=== PATIENT | female | born 1980 | race Caucasian/White ===

== ENCOUNTER 2024-09-22 08:07 | Emergency (ER) | payer OTHER, SELFPAY ==
--- OUTSIDE RECORDS SUMMARY | 2024-09-22 08:11 | XMS_ITS | Clinical Summary ---
Author Organization [facility] Address [address] [place] [address] Care Team Providers Care House Rn Name Role Phone Minor Joshi Primary Care Provider [phone] Source Comments [facility],non-owned Affiliates and Associated Physician Practices is amultiple site organization consisting of ambulatory clinics and hospital sitesin [place], [place], [place] and [place]. This disclosure is being madepursuant to the Care Everywhere program and may not contain all information available regarding this patient. Last updated 17.[facility] Allergies No known active allergies Medications * Be aware that medications may not be up to date on this document. Alwaysverify current medications with the patient. acetaminophen (TYLENOL) 325 MG tablet Take 2 tablets by mouth every 6 hours Maximum allowable Acetaminophen amount = 4 Grams (4000 mg) / 24 hours. 0 Active ibuprofen (MOTRIN) 600 MG tablet Take 1 tablet by mouth every 6 hours 0 Active Active Problems No known active problems Family History Medical History Relation Name Comments Cancer - Ovarian Maternal Grandmother Cancer - Breast Maternal Great-Grandmother Relation Name Status Comments Maternal Grandmother Maternal Great-Grandmother Social History Tobacco Use Types Packs/Day Years Used Date Smoking Tobacco: Never Smokeless Tobacco: Never Alcohol Use Standard Drinks/Week Comments Yes 0 (1 standard drink = 0.6 oz pur e alcohol) Comments No Sex and Gender Information Value Date Recorded Sex Assigned at Not on file Legal Sex Female 10:30 AM CDT Gender Identity Not on file Sexual Orientation Not on file Last Filed Vital Signs Vital Sign Reading Time Taken Comments Blood Pressure 120/79 02/15/2020 10:01 AM STRADDLE BUG OPERATOR Pulse 107 02/15/2020 10:01 AM STRADDLE BUG OPERATOR Temperature 36 C (96.8 F) 02/15/2020 10:01 AM STRADDLE BUG OPERATOR Respiratory Rate 18 02/15/2020 10:01 AM STRADDLE BUG OPERATOR Oxygen Saturation 100% 02/15/2020 10:01 AM STRADDLE BUG OPERATOR Inhaled Oxygen Concentration - - Weight 85.4 kg (188 lb 3.2 oz) 02/15/2020 10:01 AM STRADDLE BUG OPERATOR Height 175.3 cm (5' 9) 02/15/2020 10:01 AM STRADDLE BUG OPERATOR Body Mass Index 27.79 02/15/2020 10:01 AM STRADDLE BUG OPERATOR Plan of Treatment Health Maintenance Due Date Last Done Comments LIPID TESTING 1980 HIV SCREENING 09/12/1995 HEPATITIS C SCREENING 09/07/1998 DTAP/TDAP/TD VACCINES (1 - Tdap) 09/12/1999 HEPATITIS B VACCINE (1 of 3 - 19+ 3-dose series) 09/12/1999 MAMMOGRAM 11/29/2021 11/30/2019 COVID-19 VACCINE (1 - 2023-2 5 season) 2023 DEPRESSION SCREENING 03/15/2024 INFLUENZA VACCINE (#1) 2024 ZOSTER VACCINE (1 of 2) 2030 HIB VACCINE Aged Out No longer eligi ble based on patient's age to complete this topic HPV VACCINE Aged Out No longer eligi ble based on patient's age to complete this topic MENINGOCOCCAL (Group B) VACC INE SHARED DECISION-MAKING Aged Out No longer eligibl e based on patient's age to complete this topic MENINGOCOCCAL GROUPS A/C/Y/W VACCINE Aged Out No longer eligible b ased on patient's age to complete this topic PNEUMOCOCCAL VACCINE Aged Out No long er eligible based on patient's age to complete this topic Insurance [facility] Care Teams House Rn Relationship Specialty [place] [address] [place] [address] PCP - General Physician Motor Block Mechanic 12/28/19
--- NOTE | 2024-09-22 08:13 | ED.URI ---
HPI - URI/Sore Throat General Chief Complaint: Upper Respiratory Infection Stated Complaint: Sore throat / chest tightness Time Seen by Provider: 09/22/24 08:13 Source: patient and RN notes reviewed Mode of arrival: ambulatory Limitations: no limitations History of Present Illness HPI Narrative: 44-year-old female presents with concern for 3 day history of cough, fever, sore throat, nausea, body aches. She reports symptoms started on Wednesday. She is taking Claritin with mild relief. She took multi symptom cold medicine yesterday with no relief. She denies any direct sick contacts. MD elicited complaint: cough and sore throat Related Data Allergies Allergy/AdvReac Type Severity Reaction Status Date / Time No Known Allergies Allergy Unknown Verified 09/22/24 08:12 Review of Systems Review of Systems: CONSTITUTIONAL: Reports malaise, fever. EYES: Denies visual changes, redness, or discharge. ENT: Reports rhinorrhea, congestion, and sore throat. CARDIOVASCULAR: Denies chest pain, palpitations, or edema. RESPIRATORY: Reports cough. Denies dyspnea. GASTROINTESTINAL: Denies abdominal pain, vomiting, diarrhea. Reports nausea SKIN: Denies rash or itching. MUSCULOSKELETAL: Reports myalgia. NEUROLOGIC: Reports headache. All systems reviewed & are unremarkable except as noted in HPI and below PMFSH Comments At time of signature, agree with nursing past medical, surgical, social and family history. There is no relevant family history pertinent to the presenting complaint Exam Narrative: GENERAL: Nontoxic-appearing, well-nourished, and in no acute distress. HEAD: Normocephalic EYES: PERRLA, conjunctivae clear ENT: Nares clear, turbinates edematous and erythematous, clear discharge. Mucous membranes moist. TM pearly stanley with sharp light reflex bilaterally; no tragal tenderness. Oropharynx not erythematous without lesions. Tonsils not enlarged and without exudate, no drooling, no hoarseness, no trismus, uvula midline. NECK: Supple. No lymphadenopathy CHEST: Clear to auscultation, breath sounds equal. No wheezing, rhonchi, rales, or stridor. No respiratory distress, speaks in full sentences. HEART: Regular rate and rhythm. No murmur heard. SKIN: Warm, dry, no rash. NEURO: Alert and oriented x3. PSYCH: Normal mood and affect Course Course Emergency Course: Patient is aware of diagnosis, understands and agrees to treatment plan. Anticipatory guidance given. Patient agrees to follow-up as directed and is aware of reasons to seek care at the emergency department. Portions of this record may have been created with voice recognition software Level of Care: Express Care Visit Vital Signs Vital signs: Reviewed. MDM - URI/Sore Throat MDM Narrative Medical decision making narrative: Differential diagnosis considered: Andrews virus, strep pharyngitis, allergic rhinitis, upper respiratory tract infection, sinusitis, rhinosinusitis, nasopharyngitis. viral pharyngitis, otitis media, otitis externa, pneumonia, bronchitis, viral cough syndrome, viral syndrome, and influenza. Exam findings show no acute concerns or changes; patient is non-toxic appearing and is in no distress. Patient is appropriate for outpatient treatment and follow-up. Lab Data Attestation: I reviewed the patient's lab results. Critical Care Time Critical Care Time Critical Care Time: No Discharge Plan Discharge Clinical Impression: Upper respiratory infection Patient Disposition: Home Condition: Stable Instructions: Upper Respiratory Infection (ED) Additional Instructions: Your COVID and flu tests are negative Your rapid strep swab was negative today at [facility]. A throat culture will be sent to the laboratory for further testing. If the test is positive, you will receive a phone call within 48 hours and an appropriate antibiotic will be initiated at that time. Your symptoms are likely due to a viral illness, which is not treated with antibiotics. Viral symptoms can be present for up to a few weeks. -Alternate Tylenol and Motrin per package directions for fever or pain. -Antihistamine medication such as Benadryl at night and Zyrtec during the day can help improve symptoms. -Eat and drink things that are easy to swallow, like tea or soup, or popsicles to suck on. -Oral rinses such as: Salt water gargles and/or may use topical anesthetic (eg. Chloraseptic spray) or lozenges to relieve dryness or throat pain). -Frequent hand washing or hand physician general internal medicine is one of the best ways to prevent spread of infection. -Follow up with primary care provider in 2-3 days if condition is not improving; or seek ER visit if you have trouble breathing, cannot drink enough fluids, have muffled voice, difficulty opening your mouth, or severe swelling. Patient Language: Croatian Prescriptions: New methylprednisolone [Medrol (Julio)] 4 mg tablets,dose pack See Rx Instructions .ROUTE .COMPLEX Qty: 21 0RF Rx Instructions: orally per package directions Follow-up/Referrals: PHYSICIAN,CRUSHING MILL OPERATOR [Primary Care Provider] - Time of Disposition: 08:47
--- OUTSIDE RECORDS SUMMARY | 2024-09-22 08:14 | XMS_ITS | Encounter Summary ---
Author Organization [facility] Address [address] [place] [address] Care Team Providers Care X Ray Equipment Tester Name Role Phone [facility] Primary Care Provider + Monserrat Isaac MD Primary Care Provider [phone] Encounter Details Date Type Department Care Team (Late st Contact Info) Description 02/23/2023 MyCQosmost Message Enc [facility] Family & Internal Medicine [address] [address] [address] Dave[address] FNP[address] [place] [address] Counselor/therapy Social History Tobacco Use Types Packs/Day Years Used Date Smoking Tobacco: Former Cigarettes 0 03/31/2010 - 03/31/2015 Smokeless Tobacco: Never Comments:1 pack every 3 days Alcohol Use Standard Drinks/Week Comments Yes 0 (1 standard drink = 0.6 oz pure alcohol) occasional, 1-2 mikes hard lemonade per week PHQ-2 Answer Date Recorded Patient Health Questionnaire-2 Score 0 01/18/2023 Comments No Sex and Gender Information Value Date Recorded Sex Assigned at Not on file Legal Sex Female 5:44 PM CDT Gender Identity Not on file Sexual Orientation Not on file documented as of this encounter Progress Notes * INGRID Hernandez - 02/24/2023 10:56 AM CST Noted. Thank you. D HORTICULTURAL SPECIALTY GROWER * Bettina Amaya RN - 02/24/2023 10:39 AM CST FYI D HORTICULTURAL SPECIALTY GROWER documented in this encounter Plan of Treatment Not on file documented as of this encounter Visit Diagnoses Not on filedocumented in this encounter Additional Health Concerns Infection Onset Date Last Indicated Resolved Time Respiratory Rule Out 06/14/2024 06/14/2024 025 7:59 AM CDT Assessment Noted Time PHQ-9 Depression Total Score: 022 1:33 PM CDT documented as of this encounter Care Teams X Ray Equipment Tester Relationship Specialty Start Date End Date Clari Davey FNP-BC [address] [address], [address] [place] [address] PCP - General Nurse Practitioner Family 10/15/2209/12 [place] [address] [address] [place] [address] PCP - General INTERNAL MEDICINE 09/22/24 documented as of this encounter
--- OUTSIDE RECORDS SUMMARY | 2024-09-22 08:14 | XMS_ITS | Encounter Summary ---
Author Organization [facility] Address [address] [place] [address] Care Team Providers Care Mail Processing Equipment Mechanic Name Role Phone Clari Davey [facility] Primary Care Provider + Monserrat Isaac MD Primary Care Provider [phone] Encounter Details Date Type Department Care Team (Late st Contact Info) Description 02/23/2023 MyCCrowd Playt Message Enc [facility] Medical [facility] Family & Internal Medicine [address] [address] Clari Davey, [address], [address] [place] [address] Energy Social History Tobacco Use Types Packs/Day Years [...] as of this encounter Progress Notes * Bettina Amaya RN - 02/24/2023 10:22 AM CST Please advise. WHINA KOHANGA REO documented in this encounter Plan of Treatment Not on file documented as of this encounter Visit Diagnoses Not on filedocumented in this encounter Additional Health Concerns Infection Onset Date Last Indicated Resolved Time Respiratory Rule Out 06/14/2024 06/14/2024 025 7:59 AM CDT Assessment Noted Time PHQ-9 Depression Total Score: 12 022 1:33 PM CDT documented as of this encounter Care Teams Mail Processing Equipment Mechanic Relationship Specialty Start Date End Date Clari Davey, SAFETY CLOTHING AND EQUIPMENT DEVELOPER- [address] [address], [address] [place] [address] PCP - General Nurse Practitioner Family 10/15/2209/12 [place] [address] [address] [place] [address] PCP - General INTERNAL MEDICINE 09/22/24 documented as of this encounter
--- OUTSIDE RECORDS SUMMARY | 2024-09-22 08:14 | XMS_ITS | Clinical Summary ---
Author Organization [facility] Address [address] [place] [address] Care Team Providers Care Account Service Associate Name Role Phone Monserrat Isaac MD Primary Care Provider [phone] Allergies No known active allergies Medications diclofenac EC (VOLTAREN) 75 MG tabletIndicatio ns:Right foot pain Take 1 tablet (75 mg total) by mouth 2 (two) times daily. 60 tablet 1 4 Active Additional Information Patient not taking.Reported on 06/14/2024 albuterol sulfate HFA 108 (90 Base) MCG/ACT inhalerIndicati ons:Environment al allergies Inhale 2 puffs into the lungs every 6 (six) hours as needed. 18 g Active Active Problems Problem Noted Date Diagnosed Date Sinusitis, acute 06/21/2017 Fatigue 06/21/2017 Vitamin B 12 deficiency 06/23/2016 Bipolar disorder ([facility]) 06/11/2016 Resolved Problems Problem Noted Date Diagnosed Date Resolved Date Encounter for preventive health examination 06/11/2016 12/02/2020 Encounters Date Type Department Care Team Description 07/14/2024 Results Follow-Up [facility] Family & Internal Medicine [facility] [address] [place] [address] John Bower, SENIOR SYSTEMS DEVELOPER-BC MG SCREENING W MADELINE BEN DIGI 07/13/2024 3:00 PM CDT - 07/13/2024 11:59 PM CDT Hospital Encounter [facility] [address] [place] [address] John Bower, [facility] Discharge Disposition: Home or Self Care (Routine Discharge) 07/13/2024 Travel from Last 3 Months Immunizations Immunization Administration Dates Next Due COVID-19 Vaccine (Generic) 02/14/2021(Deferred: Patient Refused) Influenza (Generic) 02/14/2021(Deferred: Patient Refused) Family History Medical History Relation Comments No Known Problems Brother Cancer Father lung No Known Problems Maternal Grandfather No Known Problems Maternal Grandmother TIA mini strokes Mother No Known Problems Paternal Grandfather No Known Problems Paternal Grandmother No Known Problems Sister Breast Cancer Neg Hx Relation Status Comments Brother Alive Father Maternal Grandfather Alive Maternal Grandmother Mother Alive Paternal Grandfather Paternal Grandmother Alive Sister Alive Social History Tobacco Use Types Packs/Day Years Used Date Smoking Tobacco: Former Cigarettes 0 03/31/2010 - 03/31/2015 Smokeless Tobacco: Never Tobacco Cessation:Counseling Given: Yes Comments:1 pack every 3 days Alcohol Use Standard Drinks/Week Comments Yes 0 (1 standard drink = 0.6 oz pure alcohol) occasional, 1-2 mikes hard lemonade per week PHQ-2 Answer Date Recorded Patient Health Questionnaire-2 Score 0 06/16/2023 Comments No Sex and Gender Information Value Date Recorded Sex Assigned at Not on file Legal Sex Female 5:44 PM CDT Gender Identity Not on file Sexual Orientation Not on file Last Filed Vital Signs Vital Sign Reading Time Taken Comments Blood Pressure 131/89 06/14/2024 7:35 AM CDT Pulse 97 06/14/2024 7:35 AM CDT Temperature 36.9 C (98.5 F) 06/14/2024 7:35 AM CDT Respiratory Rate 21 06/14/2024 7:35 AM CDT Oxygen Saturation 98% 06/14/2024 7:35 AM CDT Inhaled Oxygen Concentration - - Weight 92.1 kg (203 lb) 06/14/2024 7:35 AM CDT Height 175.3 cm (5' 9) 06/14/2024 7:35 AM CDT Body Mass Index 29.98 06/14/2024 7:35 AM CDT Plan of Treatment Health Maintenance Due Date Last Done Comments Hepatitis C 1998 DTaP, Tdap and Td Vaccines (1 - Tdap) 09/12/1999 Hepatitis B Vaccines (1 of 3 - 19+ 3-dose series) 09/12/1999 Annual Physical 11/12/2023 11/11/2022 COVID-19 Vaccine (1 - 2023- season) 2023 PHQ-2 (Physician Hawthorne) 03/15/2024 06/16/2023 Cervical Cancer Screening Pap Smear (Age 30 to 64) Every 3 Years 11/11/2025 11/11/2022, 04/09/2011 Mammogram Screening 07/13/2026 07/13/2024, 03/03/2023, 02/28/2021, Additional history exists Cervical Cancer Screening Pap with HPV Testing (Age 30 to 64) Every 5 Years 11/12/2027 11/11/2022, 11/11/2022 Cervical Cancer Screening with HPV 11/12/2027 HPV Vaccines Aged Out No longer eligi ble based on patient's age to complete this topic Meningococcal B Vaccine Aged Out No l onger eligible based on patient's age to complete this topic Meningococcal Vaccine Aged Out No lisandro lavonne eligible based on patient's age to complete this topic Pneumococcal Vaccine: Pediatrics (0 to 5 Years) and At-Risk Patients (6 to 49 Years) Aged Out No longer eligible based on patient's age to complete this topic RSV Immunizations Under 20 Months Aged Out No longer eligible based on patient's age to complete this topic Procedures Procedure Name Priority Date/Time Associated Diagnosis Comments MG SCREENING W MADELINE BEN DIGI Routine 07/13/2024 4:00 PM CDT Screening mammogram for breast cancer THINPREP IMAGING PAP AND HPV MRNA E6/E7 Routine 11/11/2022 7:25 AM CDT OUTSIDE CYTOPATH CERV/VAG INTERPRET (PAP) 11/11/2022 from Last 3 Months or Most Recently Relevant to Health Maintenance Results * MG SCREENING W MADELINE BNE DIGI (07/13/2024 4:00 PM CDT) Anatomical Region Laterality Modality Breast Bilateral Mammography 07/14/2024 8:39 AM CDT Impressions 07/14/2024 8:40 AM CDT =====IMPRESSION:===== No mammographic findings suggestive of malignancy ASSESSMENT: ACR BI-RADS 2 - BENIGN FINDING(S) Recommendation: 1: Routine Screening Bilateral COMMENTS: Ordered By: JOHN BOWER Interpreted By: Isaak Jj MD, 07/14/2024 8:39 AM Narrative 07/14/2024 8:40 AM CDT [facility] [address] [place] [address] EXAMINATION: Digital bilateral screening mammogram with 3-D tomosynthesis EXAM DATE/TIME: 07/13/2024 3:12 PM REASON FOR EXAM: Screening COMPARISON: Priors including November 2019, February 2021, February 2023. TECHNIQUE: Digital screening mammography of both breasts was performed in addition to 3-D Tomosynthesis technique. This study was read with the assistance of a computer-aided detection system. TISSUE DENSITY: There are scattered areas of fibroglandular density. FINDINGS: No suspicious masses, malignant appearing calcifications, skin thickening or other abnormalities are present. No significant change from the prior exam. John Bower SENIOR SYSTEMS DEVELOPER-BC MAMMO Final Re sult * THINPREP IMAGING PAP AND HPV MRNA E6/E7 (11/11/2022 7:25 AM CDT) CLINICAL INFORMATION: 7 or more years since last Pap AtbroxELKO, [place] Clinical Information: NONE GIVEN AtbroxELKO, [place] Date of Last Pap NONE GIVEN QU EST [employer] Enterprises[employer], [place] Previous Biopsy? NONE GIVEN QU EST [employer], [place] SOURCE (QST) Endocervix AtbroxELKO, [place] STATEMENT OF ADEQUACY: AtbroxELKO, [place] Comment: Satisfactory for evaluation. Endocervical/transformation zone component absent. Age and/or menstrual status not provided PAP INTERPRETATION/RES ULTS Cytology Results: Negative for intraepithelial lesion or malignancy. TERRIL, [place] COMMENT: This Pap test has been evaluated with computer assisted technology. TERRIL, [place] JET DYEING MACHINE TENDER [facility], [place] Comment: AMW, CT(ASCP) CT screening location: [place] [address] [address] [place] [address] REVIEW JET DYEING MACHINE TENDER: TERRIL, [place] Comment: MARAVILLA, CT(ASCP) CT Screening location: [facility] [address] [place] [address] COMMENT: TERRIL, [place] Comment: EXPLANATORY NOTE: The Pap is a screening test for cervical cancer. It is not a diagnostic test and is subject to false negative and false positive results. It is most reliable when a satisfactory sample, regularly obtained, is submitted with relevant clinical findings and history, and when the Pap result is evaluated along with historic and current clinical information. HPV MRNA E6/E7 Not Detected Not Detected [facility] Comment: Methodology: Ballast Cleaning Machine Operator-Mediated Amplification This assay detects E6/E7 viral messenger RNA (mRNA) from 14 high-risk HPV types (16,18,31,33,35,39,45,51,52,56,58,59,66,68). Cervical sources are required for HPV testing. If a vaginal source from a patient who has had a total hysterectomy with removal of cervix was submitted, please contact the testing laboratory for alternative testing options. For additional information, please refer to http://education.Sanswire/faq/ZLU442p4 (This link if provided for information/ educational purposes only.) Your request to have a duplicate copy faxed has been acknowledged. Queued to: [id number] 11/11/2022 7:25 AM CDT 11/12/2022 7:06 AM CDT Narrative [facility] - 11/17/2022 7:21 AM CDT FASTING: UNKNOWN Resulting Agency Comment Performing Organization Information: Site ID: [id number] Name: [facility] Address: [address] [address] Director: Jaden Fernandez MD Site ID: [id number] [facility] Address: [address] [address] [address] Director: Jaden Fernandez Teri BERGMAN PATHOLOGY/CYTOLOGY ORDERABLE S Final Result [facility], [place] [address] [place] [address], [facility] [address] [place] [address], [place] * PAP SMEAR WITH HPV (11/11/2022) 11/11/2022 [facility] Scanned SCANNING Final Resu lt from Last 3 Months or Most Recently Relevant to Health Maintenance Care Teams Account Service Associate Relationship Specialty [place] [address] [facility] [address] [place] [address] PCP - General INTERNAL MEDICINE 09/22/24
--- OUTSIDE RECORDS SUMMARY | 2024-09-22 08:14 | XMS_ITS | Encounter Summary ---
Author Organization [facility] Address [address] [place] [address] Care Team Providers Care Dry Clipper Tender Name Role Phone [facility] Primary Care Provider + Monserrat Isaac MD Primary Care Provider [phone] Encounter Details Date Type Department Care Team (Late st Contact Info) Description 06/05/2024 MyCROVOPt Message Enc [facility] Family & Internal Medicine [address] [address] [address] FNP[address] [place] [address] MAMMOGRAM AND PAP Social History Tobacco Use Types Packs/Day Years [...] encounter Progress Notes * INGRID Hernandez - 06/06/2024 2:52 PM CDT Okay to order b/l screening mammogram dx breast cancer screening. Last pap smear was negative on 11/2022. Repeat pap smear for cervical cancer screening is recommended in 3-5 years. If she has concerns or new symptoms, she may want to schedule an appointment for a pelvic exam to make sure all the tissues are healthy even though a pap smear is not due. * Tonie Ruby MA - 06/06/2024 7:57 AM CDT Please advise, per health maintenance recommendations pt is not due for mammogram until February 2025, and her pap until 2027, okay to place mammogram order and schedule pap? documented in this encounter Plan of Treatment Not on file documented as of this encounter Visit Diagnoses Not on filedocumented in this encounter Additional Health Concerns Infection Onset Date Last Indicated Resolved Time Respiratory Rule Out 06/14/2024 06/14/2024 025 7:59 AM CDT Assessment Noted Time PHQ-9 Depression Total Score: 2 06/16/19 24 8:16 AM CDT documented as of this encounter Care Teams Dry Clipper Tender Relationship Specialty Start Date End Date Clari Davey FNP-BC [address], [address] [place] [address] PCP - General Nurse Practitioner Family 10/15/2209/12 [place] [address] [place] [address] PCP - General INTERNAL MEDICINE 09/22/24 documented as of this encounter
--- OUTSIDE RECORDS SUMMARY | 2024-09-22 08:14 | XMS_ITS | Encounter Summary ---
Author Organization [facility] Address [address] [place] [address] Care Team Providers Care Honest John Rocket Crew Member Name Role Phone [facility] Primary Care Provider + Monserrat Isaac MD Primary Care Provider [phone] Encounter Details Date Type Department Care Team (Late st Contact Info) Description 06/21/2024 MyChart Message Enc [facility] Family & Internal Medicine [address] [address] [address] Davey FNP[address] [place] [address] Last Visit Steriods Social History Tobacco Use Types Packs/Day Years [...] encounter Progress Notes * INGRID Hernandez - 06/22/2024 8:14 AM CDT Steroids could effect menstrual cycles. I would recommend monitoring for now. If bleeding worsens (changing tampon every hour or passing large clots) or she has prolonged bleeding (>2 weeks) I would recommend scheduling an appointment for further evaluation. documented in this encounter Plan of Treatment Not on file documented as of this encounter Visit Diagnoses Not on filedocumented in this encounter Additional Health Concerns Assessment Noted Time PHQ-9 Depression Total Score: 2 06/16/19 24 8:16 AM CDT documented as of this encounter Care Teams Honest John Rocket Crew Member Relationship Specialty Start Date End Date Clari Davey FNP-BC [address], [address] [place] [address] PCP - General Nurse Practitioner Family 10/15/2209/12 [place] [address] [place] [address] PCP - General INTERNAL MEDICINE 09/22/24 documented as of this encounter
--- OUTSIDE RECORDS SUMMARY | 2024-09-22 08:14 | XMS_ITS | Encounter Summary ---
Author Organization [facility] Address [address] [place] [address] Care Team Providers Care Geological Manager Name Role Phone Clari Davey [facility] Primary Care Provider + Monserrat Isaac MD Primary Care Provider Encounter Details Date Type Department Care Team (Late st Contact Info) Description 11/02/2022 [email or web address] Message Enc [facility] Family & Internal Medicine [address] [address] Clari Davey, [address] [address] Test Results Social History Tobacco Use Types Packs/Day Years Used Date Smoking Tobacco: Former Cigarettes 0 03/31/2010 - 03/31/2015 Smokeless Tobacco: Never Comments:1 pack every 3 days Alcohol Use Standard Drinks/Week Comments Yes 0 (1 standard drink = 0.6 oz pure alcohol) occasional, 1-2 mikes hard lemonade per week PHQ-2 Answer Date Recorded PHQ-2 Score - If the patient scores above 3, please move on to questions 3-9 0 12/23/2021 Comments No Sex and Gender Information Value Date Recorded Sex Assigned at Not on file Legal Sex Female 5:44 PM CDT Gender Identity Not on file Sexual Orientation Not on file documented as of this encounter Progress Notes * Bettina Amaya RN - 11/05/2022 8:34 AM CDT Patient states she would like to try the gabapentin. Please advise. * Bettina Amaya RN - 11/04/2022 3:51 PM CDT FYI advise? * Bettina Amyaa RN - 11/02/2022 1:26 PM CDT FYI-advise? documented in this encounter Plan of Treatment Not on file documented as of this encounter Visit Diagnoses Diagnosis Vasomotor flushing- Primary Flushing documented in this encounter Additional Health Concerns Infection Onset Date Last Indicated Resolved Time COVID-19 Rule Out 12/09/2022 11/17/2022 12/09/2022 10:33 AM CDT Respiratory Rule Out 06/14/2024 06/14/2024 025 7:59 AM CDT Assessment Noted Time PHQ-9 Depression Total Score: 12 022 1:33 PM CDT documented as of this encounter Care Teams Geological Manager Relationship Specialty Start Date End Date Clari Davey, [facility]- [address] [place] [address] PCP - General Nurse Practitioner Family 10/15/2209/12 [place] [address] [address] [place] [address] PCP - General INTERNAL MEDICINE 09/22/24 documented as of this encounter
[2024-09-22 08:23] VITALS: BP 122/77; PULSE 98; RESP 18; TEMP 36.4; O2SAT 100
[2024-09-22 08:34] LABS: EDSTREPNEGPOS1 Negative (Negative)
[2024-09-22 08:42] LABS: EDCOVIDSCREEN Negative (Negative); EDINFLUASCREEN Negative (Negative); EDINFLUBSCREEN Negative (Negative)
== END 2024-09-22 08:48 | disposition home or self-care (01) ==
PROVIDERS: Emergency Provider Nurse Practitioner
DX: J06.9 Acute upper respiratory infection, unspecified (principal); Z20.822 Contact with and (suspected) exposure to COVID-19
CPT/HCPCS: 87081; 87426; 87804; 87880; 99203; G0463